=== PATIENT | male | born 1970 | race Caucasian/White ===

== ENCOUNTER 2018-12-07 05:08 | Emergency (ER) | payer OTHER ==
[~2018-12-07] VITALS: Ht 175.3 cm; Wt 72.6 kg
[2018-12-07] MEDS ORDERED: DOXYCYCLINE 10100 MG PO (05:12)
[2018-12-07 06:00] VITALS: BP 138/93
== END 2018-12-07 06:00 | disposition home or self-care (01) ==
LOC: ER 05:08
DX: L53.9 Erythematous condition, unspecified (principal); R21 Rash and other nonspecific skin eruption; F17.210 Nicotine dependence, cigarettes, uncomplicated; Z88.0 Allergy status to penicillin

== ENCOUNTER 2019-04-16 09:58 | Emergency (ER) | payer OTHER ==
[~2019-04-16] VITALS: Ht 162.6 cm; Wt 45.4 kg
[~2019-04-16 09:58] MED LIST: DOXYCYCLINE 10100 MG PO
[2019-04-16 09:59] VITALS: BP 80/45
[2019-04-16] MEDS ORDERED: OLANZAPINE ODT5 MG PO (10:37)
[2019-04-16] MEDS ORDERED: DIVALPROEX SOD500 MG PO (10:38)
[2019-04-16] MEDS ORDERED: VITAMIN D32000 UNI2 PO (10:39)
[2019-04-16] MEDS ORDERED: TRAZODONE HCL50 MG PO ×2 (10:39→10:40)
[2019-04-16] MEDS ORDERED: TYLENOL325 MG PO (10:41)
[2019-04-16] MEDS ORDERED: PRAVACHOL 20 MG20 M1 PO (10:41)
[2019-04-16] MEDS ORDERED: MILK OF MA400 MG/5 M PO (10:42)
[2019-04-16] MEDS ORDERED: BISACODYL10 MG RECTAL (10:42)
[2019-04-16] MEDS ORDERED: MI ACID LIQUID355 ML PO (10:43)
[2019-04-16] MEDS ORDERED: DORYX MPC120 MG PO (10:44)
--- NOTE | 2019-04-16 19:38 | NUR ---
PLEASE SEE PT'S ADDITIONAL CHART FOR FURTHER DOCUMENTATION- ONGOING DOCUMENTATION WAS DONE ON UPDATED CHART. CHARGE NURSE AND MD AWARE OF CHANGE IN PT ACCOUNT INFO. LAB TRANSFERRED PT LAB RESULTS TO NEW CHART.
--- NOTE | 2019-05-14 15:21 | EKG ---
[facility] [place] [address] ELECTROCARDIOGRAM REPORT Name: CHECO VILLAGRAN Room #: DEP [facility]#: [id number] Admission: 04/16/19 Attend Phys: Discharge: 04/16/19 Date of : 70 Report #: [id number] THIS REPORT FOR: cc: NO FAMILY PHYSICIAN or PCP NO FAMILY PHYSICIAN or PCP Dean Reyes MD ~ THIS REPORT FOR: //name// [facility] ED Test Date: 2019-04-16 Test Time: 10:16:22 Pat Name: CHECO VILLAGRAN Department: Room: Gender: Wholesale Representative: LUISA : 1970 Requested By: Efrain Garcia Order Number: [id number] MD: Dean Reyes Measurements Intervals [place] Rate: 93 P: 88 ND: 146 QRS: 71 QRSD: 112 T: 72 QT: 404 QTc: 503 Interpretive Statements Sinus rhythm Borderline intraventricular conduction delay No previous ECG available for comparison Electronically Signed On 04-16-2019 11:09:27 [employer] by Dean Reyes [email or web address] <ELECTRONICALLY SIGNED> By: Dean Reyes MD 04/16/19 [id number] Dean Reyes MD /MIKE
== END 2019-04-16 15:10 | disposition still patient (30) ==
LOC: ER 09:58 → EROBS 11:42
DX: E87.0 Hyperosmolality and hypernatremia (principal); E83.41 Hypermagnesemia; E86.0 Dehydration; N39.0 Urinary tract infection, site not specified; D72.829 Elevated white blood cell count, unspecified; R41.82 Altered mental status, unspecified; R65.21 Severe sepsis with septic shock; J44.9 Chronic obstructive pulmonary disease, unspecified; F31.9 Bipolar disorder, unspecified; F17.210 Nicotine dependence, cigarettes, uncomplicated; Z88.0 Allergy status to penicillin